=== PATIENT | male | born 1930 | race Hispanic/Latino ===

== ENCOUNTER 2020-01-21 05:51 | Day surgery (SDC) | payer OTHER ==
[2020-01-17 09:42] LABS: BASOPHILS % (AUTO) 0.6 % (0.0-5.0); EOSINOPHILS % (AUTO) 5.3 % (0.0-8.0); LYMPHOCYTES % (AUTO) 12.2 % (21.0-51.0); MEAN CORPUSCULAR HEMOGLOBIN 31.1 pg (27.0-33.0); MEAN CORPUSCULAR HGB CONC 34.6 g/dL (32.0-36.0); MEAN CORPUSCULAR VOLUME 89.7 fL (79-99); MONOCYTES % (AUTO) 11.8 % (3.0-13.0); NEUTROPHILS % (AUTO) 69.8 % (40.0-77.0); PLATELET COUNT (AUTO) 238 K/uL (130-400); RED BLOOD CELL COUNT(AUTO) 3.12 MIL/uL (4.50-6.20); WHITE BLOOD COUNT (AUTO) 7.2 K/uL (4.8-10.8)
[2020-01-17 09:51] LABS: CREATININE 1.4 mg/dL (0.5-1.5); POTASSIUM 4.6 mmol/L (3.5-5.1)
[2020-01-17 09:56] LABS: PARTIAL THROMBOPLASTIN TIME 28.4 SEC (26.3-35.5); PROTHROMBIN TIME 10.8 SEC (9.6-11.6)
[2020-01-20 11:29] VITALS: BP 111/51
--- NOTE | 2020-01-20 14:03 | NUR ---
LABS ABNORMAL LABS INCLUDING HEMOGLOBIN, HEMATOCRIT, SODIUM, BUN, AND CREATNINE FAXED TO [facility]. PENDING REVIEW OF LABS.
--- NOTE | 2020-01-20 16:04 | NUR ---
LABS PER SHELLI ADDISON, REPEAT BMP IN AM ON DOS. ORDER IN COMPUTER.
[2020-01-21] VITALS (13 sets, daily range): BP systolic 90–134; BP diastolic 47–57
[~2020-01-21] VITALS: Ht 162.6 cm; Wt 72.3 kg
[~2020-01-21 05:51] MED LIST: AEC81 PO; AMLO-257 PO; CARV25TA PO; CLOP75TA32 PO; FURO40TA5 PO; GLIP5TAB11 PO; HYDR-3420 PO; INSU3INS3 SQ; ISOS30TA11 PO; LISI40TA4 PO; OZEMPIC SQ; SIMV10TA97 PO; SODIUM CHLORIDE 0.9% 1000ML 1,000 ML IV SCH
[2020-01-21 06:54] LABS: CREATININE 1.3 mg/dL (0.5-1.5); POTASSIUM 4.6 mmol/L (3.5-5.1)
[2020-01-21] MEDS ORDERED: BUPIVACAINE/PF 0.25% 30ML VIAL IJ ONE (07:19)
[2020-01-21] MEDS ORDERED: CEFAZOLIN SODIUM 1 GM VIAL ONE (07:19)
[2020-01-21] MEDS ORDERED: LIDOCAINE HCL 1% MDV 50ML VIAL ONE (07:20)
[2020-01-21] MEDS ORDERED: VANCOMYCIN 1GM+NS 250ML 500 ML IV ONE (07:22)
[2020-01-21] MEDS ORDERED: ACETAMINOPHEN-CODEINE 300/30MG TAB PO PRN (08:15)
[2020-01-21] MEDS ORDERED: ONDANSETRON HCL 4 MG/2 ML VIAL IV PRN (08:15)
--- NOTE | 2020-01-21 08:30 | NUR ---
RECEIVE PT FROM [facility] POST PPM INSERTION. PRESSURE DRESSING TO LEFT UPPER CHEST CLEAN DRY AND INTACT. NO HEMATOMA OR BLEEDING LT UPPER CHEST. ICE PACK APPLIED. PT DENIES PAIN. ELECTRIC FRYING PAN REPAIRER APPLIED. PT STABLE.
--- NOTE | 2020-01-21 10:44 | NUR ---
I NOTIFIED PT DAUGHTER JEFF AND INFORMED HER OF LATE DISCHARGE AND THAT PT WAS STABLE.
--- NOTE | 2020-01-21 11:33 | NUR ---
PT GIVEN PRINTED AND VERBAL DISCHARGE INSTRUCTIONS VERBALIZES UNDERSTANDING. HE IS AWARE THAT HE WILL BE DISCHARGED LATER TONIGHT AFTER RECEIVING 1 MORE VANCOMYCIN DOSE
--- NOTE | 2020-01-21 12:30 | NUR ---
PT ENDORSED TO [facility]
--- NOTE | 2020-01-21 12:35 | NUR ---
Pt resting comfortably s any signs of distress or complaints. Dressing to left chest clean, dry, and intact with pressure dressing in place. Pt reminded not to lift arm above shoulder level. Pt informed that he would be going home around 9:00 PM following his antibiotic administration. Lunch ordered.
[2020-01-21] MEDS ORDERED: VANCOMYCIN 1GM+NS 250ML 250 ML IV PRN (14:40)
--- NOTE | 2020-01-21 15:00 | NUR ---
Luc, pt's son called and status update given, notified that pt was being moved to [facility] and given phone number to reach floor nurses. Discharge instructions given and family notified that pt should be ready for discharge at 21:00. Family reports no further questions at this time.
--- NOTE | 2020-01-21 15:05 | NUR ---
Patient taken upstairs to room 427. Report called to RN prior to taking patient upstairs. Pt assisted to bed, comfort measures and additional blankets provided. Pt awake, alert, s any signs of distress. Pt denies any pain or further complaints. Dressing to left chest remains clean, dry, and intact c pressure dressing in place. Call light provided and chart and pt's care rendered over to nurse.
--- NOTE | 2020-01-21 15:15 | NUR ---
RECEIVED PATIENT INTO ROOM 427, PATIENT AWAKE ALERT ORIENTED X 3, DENIES ANY PAIN. DRESSING TO LEFT CHEST DRY AND INTACT ORIENTED TO ROOM, PROVIDED WITH URINAL, CALL LIGHT IN REACH. WILL CONTINUE TO MONITOR
--- NOTE | 2020-01-21 22:15 | NUR ---
DISCHARGE INSTRUCTIONS GIVEN TO PT. PT VERBALIZED AN UNDERSTANDING. IV REMOVED WITH CATH INTACT. GAVE INSTRUCTIONS TO DAUGHTER OVER THE PHONE. DAUGHTER VERBALIZED AN UNDERSTANDING. INSTRUCTED HER TO CALL BACK FOR ANY QUESTIONS.
== END 2020-01-21 22:00 ==
LOC: DAH 05:51
PROVIDERS: ATTEND Internal Medicine Cardiovascular Disease
DX: I49.5 Sick sinus syndrome (principal); I25.810 Atherosclerosis of coronary artery bypass graft(s) without angina pectoris; R01.1 Cardiac murmur, unspecified; Z95.0 Presence of cardiac pacemaker; Z79.82 Long term (current) use of aspirin; Z95.1 Presence of aortocoronary bypass graft; Z79.4 Long term (current) use of insulin; Z79.899 Other long term (current) drug therapy; Z79.01 Long term (current) use of anticoagulants; Z90.49 Acquired absence of other specified parts of digestive tract; Z98.890 Other specified postprocedural states; Z88.0 Allergy status to penicillin
CPT/HCPCS: 33228; 36415 ×2; 80048 ×2; 82948 ×2; 85025; 85610; 85730; 93005; A4215; A4216; A4221; A4222; A4223 ×3; A4606; A4663; C1785; J3370 ×2; J3490 ×2; J7030; J0690